=== PATIENT | female | born 1965 | race African-American/Black ===

== ENCOUNTER 2023-04-11 16:47 | Emergency (ER) | payer MEDICAID, SELFPAY ==
[2023-04-11 17:04] VITALS: BP 145/87; PULSE 80; RESP 16; TEMP 36.7; O2SAT 98; BMI 36.9
--- NOTE | 2023-04-11 17:04 | ED_ITS ---
HPI - Ear Problem General Chief complaint: General Medical Stated complaint: ?bug in L ear Time Seen by Provider: 04/11/23 17:08 Source: patient Mode of arrival: ambulatory Limitations: no limitations History of Present Illness HPI Narrative: 58 yo female presenting to the ER for evaluation of a possible bug in her left ear. She state states she was outside in her yard today when a bug flew into her left ear. She was unable to get it out and thinks it is still in there. She hearings a buzzing and her ear is uncomfortable. No drainage or hearing loss. No headache, fever, chills, N/V. MD Complaint: foreign body Location: left ear Duration: intermittent Severity: moderate Relieving factors: nothing Exacerbating factors: nothing Discharge from ear: no Associated symptoms ear: tinnitus Treatment prior to arrival: none Related Data Previous Rx's Medication Instructions Recorded gsgywlks-ddmsfiexn-qxuqdqnoi 3.5 4 drp otic (ear) left Q8H #10 mL 04/11/23 mg/mL-10,000 unit/mL-1 % ear solution Allergies Allergy/AdvReac Type Severity Reaction Status Date / Time No Known Allergies Allergy Verified 04/11/23 17:06 Review of Systems Review of Systems: Yes all other systems are reviewed and are negative COUNTS INCLUDE 234 BEDS AT THE [facility] Social History Social History Advance Directives: No Advance Directives Information Provided: No Physical Exam Vital Signs: Vital Signs: Last Vital Signs Temp 98.0 F 04/11/23 17:04 Pulse 80 04/11/23 17:04 Resp 16 04/11/23 17:04 BP 145/87 H 04/11/23 17:04 Pulse Ox 98 04/11/23 17:04 O2 Del Method Room Air 04/11/23 17:04 BMI result Body Mass Index 36.9 Appearance: Alert. Oriented X3. No acute distress. HEENT: normal external inspection. right EAC and TM are normal to inspection. left EAC is erythematous distally with normal appearing TM, normal landmarks. CVS: Normal heart rate and rhythm. Pulses normal. Respiratory: No respiratory distress. Skin: Skin warm and dry. Normal skin color. Normal skin turgor. No rashes. Extremities: normal inspection xf Neuro: Oriented X 3. grossly normal Medical Decision Making Medical Decision Making MDM Narrative: 58 yo female presenting to the ER for evaluation of a possible bug in her ear. Exam revealing for no bug or FB. EAC is erythematous and irritated with normal TM. will treat with topical abx/steroids. stable for d/c home Differential Diagnosis Differential Diagnoses: The differential diagnosis associated with the prese ntation includes FB in the ear, acute otitis media, acute otitis externa, TM perforation Critical Care Time Critical Care Time Critical Care Time: No Discharge Plan Discharge Clinical Impression: Otitis externa Patient Disposition: Home, Self-Care Instructions: Otitis Externa (DC) Additional Instructions: Use the prescribed antibiotic drops as directed, complete the entire course and do not miss any doses If you develop new or worsening symptoms call 911 or come back to the ER for further evaluation. Prescriptions: New eejtrmmd-prlgbyypx-FD 3.5-10,000-1 mg/mL-unit/mL-% solution 4 drp otic (ear) left Q8H Qty: 10 0RF Interventions: ED Discharge Assessment Last Done: 04/11/23 17:24 Discharge Date/Time: 04/11/23 17:25
== END 2023-04-11 17:25 | disposition home or self-care (01) ==
PROVIDERS: Emergency Provider Internal Medicine
DX: H60.92 Unspecified otitis externa, left ear (principal)
CPT/HCPCS: 99282; 99283

== ENCOUNTER 2023-06-20 19:44 | Emergency (ER) | payer MEDICAID, SELFPAY ==
--- NOTE | ~2023-06-20 | XR_ITS ---
EXAMINATION: XR HIP, RIGHT CLINICAL INFORMATION: Pain. COMPARISON: None available. TECHNIQUE: Two views of the right hip. FINDINGS: No fracture. Alignment is anatomic. Hip joint space is maintained. There are multiple calcifications along the lateral pelvis measuring up to 9 mm. XR/XR hip RT min 2V IMPRESSION: No acute osseous abnormality.
[2023-06-20 20:07] VITALS: BP 147/75; PULSE 62; RESP 18; TEMP 36.7; O2SAT 99; BMI 37.1
--- NOTE | 2023-06-20 20:09 | ED_ITS ---
HPI - General Adult General Chief complaint: Extremity Injury, Lower Stated complaint: Hip pain Time Seen by Provider: 06/20/23 23:11 Source: patient and family Mode of arrival: ambulatory Limitations: no limitations History of Present Illness HPI narrative: 58 yo female pleasant hx of HTN here with c/o R atraumatic hip pain worse with walking and ranging R hip it hurts upper lateral R hip. she gets a sharp pain but no radicular symptoms, this has never happened before. It hurts to move walk and sit. complaint: hip pain Onset (ago): week(s) (1) Location: pelvis Radiation: non-radiation Severity: moderate Quality: stabbing Pain Consistency: intermittent Relieving factors: rest Exacerbating factors: movement Associated symptoms: denies other symptoms Treatments prior to arrival: none Related Data Previous Rx's Medication Instructions Recorded fhunbdcg-txeqacbue-lyazjujqv 3.5 4 drp otic (ear) left Q8H #10 mL 04/11/23 mg/mL-10,000 unit/mL-1 % ear solution cyclobenzaprine 10 mg tablet 10 mg PO TID PRN muscle spasm #20 06/20/23 tabs hydrocodone 5 mg-acetaminophen 325 1 tab PO Q6H PRN pain #10 tabs 06/20/23 mg tablet lidocaine 4 % topical patch 1 patch topical DAILY PRN pain #10 06/20/23 ea prednisone 20 mg tablet 20 mg PO DAILY 4 days #4 tabs 06/20/23 Allergies Allergy/AdvReac Type Severity Reaction Status Date / Time No Known Allergies Allergy Verified 06/20/23 20:10 Review of Systems Review of Systems: Constitutional : No Fever, No Chills Cardiovascular : No Chest Pain, No SOB Respiratory : No Cough, No Dyspnea Gastrointestinal : No Nausea, No Vomiting, No Diarrhea, No abdominal Pain Genitourinary : No Dysuria, No Hematuria Musculoskeletal : positive joint pain, No Myalgias, No Joint Swelling Skin : No Skin lacerations, No rash Neuro : No Weakness, No Numbness, No Loss of Consciousness, No Dizziness, No Headache Psych : No Anxiety/Panic, No Depression All other systems reviewed and are negative [facility] Past Medical History Attestation statement: The following information was validated with the patient. Medical History HTN (hypertension) Social History Social History (Updated 06/20/23 @ 23:38 by Flaquita Diaz DO) Patient Tobacco Use Status: Never used Tobacco Physical Exam ED Vital Signs: Vital Signs - 24 hr 06/20/23 20:07 Temperature 98.1 F Pulse Rate 62 Respiratory Rate 18 Blood Pressure 147/75 H Pulse Oximetry 99 Oxygen Delivery Method Room Air BMI result Body Mass Index 37.1 Appearance: Alert. Oriented X3. No acute distress. Eyes: Pupils equal, round and reactive to light. ENT: Pharynx normal. Neck: Normal inspection. Neck supple. CVS: Normal heart rate and rhythm. Pulses normal. Respiratory: No respiratory distress. Breath sounds normal. Abdomen: Soft and nontender. Skin: Skin warm and dry. Normal skin color. Normal skin turgor. Extremities: No lower extremity edema. distal pulses RLE 2+ R hip pain with ROM hurts in upper lateral thigh but no ttp along R trochanteric bursitis but she definitely has a pain in lateral hip with ROM testing no clicking felt, no mass Neuro: Oriented X 3. No motor deficit. No sensory deficit. Course Course Course Narrative: This is an RME: Additional HPI, ROS, PE not included below will be deferred to primary provider. 58 year old female presenting for several weeks of right hip pain that's worse with ambulation. Atraumatic. Plan - xr Medical Decision Making Medical Decision Making MDM Narrative: 58 yo female with PMH of HTN here with R upper hip pain no radicular symptoms she is NV intact at this time could be bursitis no signs of infection vs impingment syndrome - she is NV intact xray negative will start on steroids, pain medications muscle relaxers and refer to orthopedics. Differential Diagnosis Differential Diagnoses: The differential diagnosis associated with the presentation includes bursitis, impingement syndrome, fracture Admission/Observation Consideration of admission/observation: Escalation of care including admission/observation considered xray negative not toxic can be managed with PO medications Independent Interpretation I performed an independent interpretation of an: Plain X-Ray (no fracture) Radiology Impression Discussion of test interpretation with radiology: I have reviewed the radiologist's reading. Independent Historian Clinical information obtained from an independent historian. History obtained from or confirmed by: Other Prescription Management I considered prescription management with: Pain Medication and Other Discharge Plan Discharge Clinical Impression: Acute hip pain Qualifiers: Laterality: right Qualified Code(s): M25.551 - Pain in right hip Patient Disposition: Home, Self-Care Instructions: Hip Pain (ED) Additional Instructions: your hip pain could be impingement syndrome or a bursitis - at this time will treat with anti-inflammatories, muscle relaxers and pain medications. you can talk to your primary care doctor about physcial therapy and follow up with our orthopedics team. return for numbness, weakness, worsening pain, cold blue foot or any other concerns. Prescriptions: New prednisone 20 mg tablet 20 mg PO DAILY 4 Days Qty: 4 0RF cyclobenzaprine 10 mg tablet 10 mg PO TID PRN (Reason: muscle spasm) Qty: 20 0RF lidocaine 4 % adhesive patch,medicated 1 patch topical DAILY PRN (Reason: pain) Qty: 10 0RF Rx Instructions: may leave on for up to 12 hrs hydrocodone-acetaminophen 5-325 mg tablet 1 tab PO Q6H PRN (Reason: pain) Qty: 10 0RF Rx Instructions: partial fill okay; Partial Fill upon patient request. No Action zqdijxgv-evjmycycn-JZ 3.5-10,000-1 mg/mL-unit/mL-% solution 4 drp otic (ear) left Q8H Qty: 10 0RF Referrals: Lissa Urrutia PA-C [[facility]] - (call to schedule appointment)
[2023-06-21] MEDS: Lidocaine 4 % Patch ADH..PATCH 1 PATCH TRANSDERMA (00:01)
[2023-06-21] MEDS: predniSONE 20 MG TABLET PO (00:01)
[2023-06-21] MEDS: Cyclobenzaprine HCl 10 MG TABLET PO (00:01)
== END 2023-06-21 00:04 | disposition home or self-care (01) ==
PROVIDERS: Emergency Provider Emergency Medicine
DX: M25.551 Pain in right hip (principal)
CPT/HCPCS: 73502; 99283